=== PATIENT | female | born 1985 | race American Indian/Alaskan Native ===

== ENCOUNTER 2020-08-08 22:18 | Emergency (ER) | payer OTHER ==
[2020-08-09 01:27] LABS: Bilirubin,Urine NEG (Negative); Blood,Urine NEG (Negative); Color,Urine Yellow (Yellow); Mucus,Urine 3+ /HPF
--- NOTE | 2020-08-09 01:43 | Emergency Department Report ---
ED Back Pain/Injury HPI - General Chief Complaint: Back Pain/Injury Stated Complaint: BACK PAIN Time Seen by Provider: 08/09/20 01:37 Source: patient Limitations: No Limitations - History of Present Illness Initial Comments: 34-year-old -[place] female presents to the emergency room for acute on chronic back pain. Patient states that it started this morning and progres sively getting worse. Patient states it starts from her top of her back to her lower back but does not radiate to her lower extremities. Patient denies any injuries. She states she does work at [employer]. She is taking ibuprofen 200 mg last dose at 6 PM. Patient denies any urinary or bowel incontinent. Denies any chest pain shortness of breathing. She denies any trauma no falls. Her last menstrual period was in May she is on control of Nexplanon. MD Complaint: back pain -: This morning Similar Symptoms Previously: Yes Radiation: none Severity scale (0 -10): 9 Quality: sharp Consistency: constant Improves With: none Worsens With: sitting upright, walking Associated Symptoms: denies: weakness, chest pain, difficulty urinating, incontinence, fever/chills, constipation, headaches, abdominal pain Treatments Prior to Arrival: NSAIDS (1800) - Related Data Previous Rx's Medication Instructions Recorded Last Taken Type Clindamycin [Clindamycin CAP] 300 mg PO Q6H #40 capsule 09/03/14 Unknown Rx HYDROcodone/APAP 5-325 [[place] 1 each PO Q6HR PRN #12 tablet 09/03/14 Unknown Rx 5-325 mg TAB] Loratadine (Nf) [Claritin] 10 mg PO DAILY #30 tablet 09/03/14 Unknown Rx predniSONE [Deltasone] 40 mg PO QDAY #10 tab 09/03/14 Unknown Rx Cyclobenzaprine [Flexeril] 10 mg PO TID PRN #21 tablet 04/16/15 Unknown Rx Ibuprofen [Motrin] 800 mg PO Q8HR PRN #21 tablet 04/16/15 Unknown Rx Baclofen [Lioresal] 5 mg PO TID #21 tab 08/09/20 Unknown Rx Ibuprofen [Motrin 600 MG tab] 600 mg PO Q8H PRN #30 tablet 08/09/20 Unknown Rx Allergies Allergy/AdvReac Type Severity Reaction Status Date / Time Penicillins Allergy Unknown Verified 08/09/20 00:14 ED Review of Systems ROS: Stated complaint: BACK PAIN Other details as noted in HPI ED Past Medical Hx - Surgical History Additional Surgical History: 2 c section - Social History Smoking Status: Never Smoker Substance Use Type: None - Medications Home Medications: Home Medications Medication Instructions Recorded Confirmed Last Taken Type Clindamycin [Clindamycin CAP] 300 mg PO Q6H #40 capsule 09/03/14 Unknown Rx HYDROcodone/APAP 5-325 [[place] 1 each PO Q6HR PRN #12 tablet 09/03/14 Unknown Rx 5-325 mg TAB] Loratadine (Nf) [Claritin] 10 mg PO DAILY #30 tablet 09/03/14 Unknown Rx predniSONE [Deltasone] 40 mg PO QDAY #10 tab 09/03/14 Unknown Rx Cyclobenzaprine [Flexeril] 10 mg PO TID PRN #21 tablet 04/16/15 Unknown Rx Ibuprofen [Motrin] 800 mg PO Q8HR PRN #21 tablet 04/16/15 Unknown Rx Baclofen [Lioresal] 5 mg PO TID #21 tab 08/09/20 Unknown Rx Ibuprofen [Motrin 600 MG tab] 600 mg PO Q8H PRN #30 tablet 08/09/20 Unknown Rx ED Physical Exam - General Limitations: No Limitations General appearance: alert, in no apparent distress - Head Head exam: Present: atraumatic, normocephalic - Eye Eye exam: Present: normal appearance - ENT ENT exam: Present: mucous membranes moist - Neck Neck exam: Present: normal inspection, full ROM - Respiratory Respiratory exam: Present: normal lung sounds bilaterally. Absent: accessory muscle use - Cardiovascular Cardiovascular Exam: Present: regular rate, normal rhythm. Absent: systolic murmur, diastolic murmur, rubs, gallop - GI/Abdominal GI/Abdominal exam: Present: soft, normal bowel sounds - Back Exam Back exam: Present: full ROM, tenderness, muscle spasm, paraspinal tenderness. Absent: vertebral tenderness - Neurological Exam Neurological exam: Present: alert, oriented X3, normal gait - Psychiatric Psychiatric exam: Present: normal affect, normal mood - Skin Skin exam: Present: warm, dry, intact, normal color. Absent: rash ED Course Vital Signs 08/09/20 00:16 Temperature 99.0 F Pulse Rate 82 Respiratory 18 Rate Blood Pressure 193/117 O2 Sat by Pulse 100 Oximetry ED Medical Decision Making - Medical Decision Making 34-year-old -[place] female presents to the emergency room for acute on chronic back pain. Patient states that it started this morning and progressively getting worse. Patient states it starts from her top of her back to her lower back but does not radiate to her lower extremities. Patient denies any injuries. She states she does work at [employer]. She is taking ibuprofen 200 mg last dose at 6 PM. Patient denies any urinary or bowel incontinent. Denies any chest pain shortness of breathing. She denies any trauma no falls. Her last menstrual period was in May she is on control of Nexplanon. Patient is given Toradol 30 mg IM to the left gluteal and cyclobenzaprine 5 mg p.o. Critical care attestation.: If time is entered above; I have spent that time in minutes in the direct care of this critically ill patient, excluding procedure time. ED Disposition Clinical Impression: Lumbar strain, Back pain Disposition: - TO HOME OR SELFCARE Is pt being admited?: No Does the pt Need Aspirin: No Condition: Stable Additional Instructions: Take ibuprofen as needed. Muscle relaxant as needed. Increase your fluid intake. You can apply warm heat to your back. Be sure to stretch. Follow-up with your primary care provider. Prescriptions: Baclofen [Lioresal] 5 mg PO TID #21 tab Ibuprofen [Motrin 600 MG tab] 600 mg PO Q8H PRN #30 tablet PRN Reason: Pain Referrals: PRIMARY CARE [Primary Care Provider] - 3-5 Days [facility] [Provider Group] - 3-5 Days Forms: Work/School Release Form(ED)
[2020-08-09] MEDS ORDERED: KETOROLAC 30 MG/1 ML INJ IM ONE (01:48)
[2020-08-09] MEDS ORDERED: CYCLOBENZAPRINE 10 MG TAB PO ONE (01:50)
[2020-08-09 01:55] VITALS: BP 198/90
== END 2020-08-09 02:10 | disposition home or self-care (01) ==
LOC: ED 22:18
DX: S39.012A Strain of muscle, fascia and tendon of lower back, initial encounter (principal); Z79.899 Other long term (current) drug therapy; Z88.0 Allergy status to penicillin; X58.XXXA Exposure to other specified factors, initial encounter; Y93.89 Activity, other specified; Y92.89 Other specified places as the place of occurrence of the external cause; Y99.8 Other external cause status
CPT/HCPCS: 81001; 99283; J1885